=== PATIENT | female | born 1985 | race Caucasian/White ===

== ENCOUNTER 2018-11-06 17:08 | Outpatient (CLI) | payer OTHER ==
[~2018-11-06] VITALS: Ht 157.5 cm; Wt 66.3 kg
[~2018-11-06 17:08] MED LIST: ANUS2.5C2 TOP; AUGM875T28 PO; COLA100C5 PO; DIBU0.5O TOP; LIDO1SOL7 SSP; MILK120011 PO; MOTR200T44 PO; NORCOTAB PO; PRENTAB8 PO; TYLE325T5 PO
[2018-11-06 17:22] VITALS: BP 126/59
[2018-11-06] MEDS ORDERED: LACTATED RINGER'S 1000 ML IV STA (17:56)
[2018-11-06] MEDS ORDERED: LR 1,000 ML IV SCH (17:56)
[2018-11-06 19:18] VITALS: BP 111/59
--- NOTE | 2018-11-07 08:02 | NUR ---
DOS 11/06/18 L&D Triage Note: S: 33yo at 27wkswho presents as a unregistered patient of Leah Call with c/o ctx. She reports contractions for several hours. Denies vaginal bleeding or LOF. Reports active movement. O: vss, AF cat 1 tracing with few contraction Gen: well appearing abd: gravid, nttp cx: ft/long/post SSE: neg FFN - patient provided IV hydration and was monitored for prolong period with no advancement of PTL A/P: 33yo at 29 weeks wit contraction and pelvic pressure, not in PTL reassuring status -home with PTL precautions and instructed to f/u with Leah Denny MD
== END 2018-11-06 20:20 | disposition home or self-care (01) ==
LOC: M LDO 17:08
PROVIDERS: ATTEND Obstetrics & Gynecology
DX: O47.9 False labor, unspecified (principal); Z3A.29 29 weeks gestation of pregnancy

== ENCOUNTER → 2018-12-19 | Outpatient (REF) | payer OTHER | LOC: M LAB REF 16:23 | PROVIDERS: ATTEND Nurse Practitioner Women's Health | DX: Z34.83 Encounter for supervision of other normal pregnancy, third trimester (principal); Z3A.36 36 weeks gestation of pregnancy ==

== ENCOUNTER 2021-04-13 14:07 | Emergency (ER) | payer OTHER ==
[~2021-04-13] VITALS: Ht 157.5 cm; Wt 61.7 kg
[~2021-04-13 14:07] MED LIST changes: +HYDR-3715 PO; -LIDO1SOL7 SSP; +LIDO2SOL17 SSP; -NORCOTAB PO
[2021-04-13] MEDS ORDERED: TRAZ-252 (14:23)
[2021-04-13] MEDS ORDERED: BUSP5TA (14:23)
[2021-04-13] MEDS ORDERED: TETRACAINE 0.5% OPHTH SOLN 4ML OU ONE (16:55)
[2021-04-13] MEDS ORDERED: TROPICAMIDE 0.5% OPHTH SOLN 15 ML OU ONE (16:55)
[2021-04-13] MEDS ORDERED: FLUORESCEIN OPHTH 1 MG STRIP OU ONE (16:55)
[2021-04-13] MEDS ORDERED: PHENYLEPHRINE 2.5% OPHTH SOL 2ML OU ONE (16:55)
[2021-04-13 19:14] VITALS: BP 143/76
== END 2021-04-13 19:27 | disposition home or self-care (01) ==
LOC: M ED 14:07
DX: H53.9 Unspecified visual disturbance (principal); L57.0 Actinic keratosis; F17.200 Nicotine dependence, unspecified, uncomplicated